=== PATIENT | male | born 1945 | race Caucasian/White ===

== ENCOUNTER 2018-09-28 14:04 | Observation (INO) | payer OTHER ==
[2018-09-28] MEDS ORDERED: ALTEPLASE 2 MG/VIAL IV SCH ×2 (18:00)
[2018-09-28] MEDS ORDERED: WATER FOR INJ,STERILE 10 ML IV SCH ×2 (18:00)
--- NOTE | 2018-09-28 19:16 | EDPHYS ---
Physician Documentation [facility] Name: Tyrese Jung Age: 73 yrs Sex: Male : 1945 Arrival Date: 09/28/2018 Time: 14:05 Bed 23 Private MD: VALENTINE KELLEY ED Physician Lukas Shah HPI: 09/28 16:29 This 73 yrs old Male presents to ER via Wheelchair with complaints of jmm DIALYSIS PORT PROBLEM. 16:29 Onset: The symptoms/episode began/occurred today. Associated signs and symptoms: The jmm patient has no apparent associated signs or symptoms. Modifying factors: The patient symptoms are alleviated by nothing, the patient symptoms are aggravated by nothing. This is a 73 year old amle with a history of DM, ESRD that presents to the ED with complaints of a clogged dialysis port. . Historical: - Allergies: 14:28 Sulfa (Sulfonamide Antibiotics); sv 14:28 Clindamycin; sv - PMHx: 14:28 Atrial Fib; ESRD; Diabetes - IDDM; Dysphagia; Acute systolic heart failure; BPH; COPD; sv Hyperlipidemia; allergic rhinitis; GERD; Hypertension; Gout; - Immunization history:: Adult Immunizations. - Social history:: Smoking status: . - Ebola Screening: : Patient denies travel to an Ebola-affected area in the 21 days before illness onset. ROS: 16:29 Constitutional: Negative for fever, chills, and weight loss, Cardiovascular: Negative jmm for chest pain, palpitations, and edema, Respiratory: Negative for shortness of breath, cough, wheezing, and pleuritic chest pain. 16:29 All other systems are negative. Exam: 16:29 Constitutional: This is a well developed, well nourished patient who is awake, alert, jmm and in no acute distress. Head/Face: atraumatic. Eyes: EOMI, no conjunctival erythema appreciated ENT: Moist Mucus Membranes Neck: Trachea midline, Supple Chest/axilla: Normal chest wall appearance and motion. Cardiovascular: Regular rate and rhythm. No edema appreciated Respiratory: Normal respirations, no respiratory distress appreciated Abdomen/GI: Non distended, soft Back: Normal ROM Skin: General appearance color normal MS/ Extremity: Moves all extremities, no obvious deformities appreciated, no edema noted to the lower extremities Neuro: Awake and alert, normal gait Psych: Behavior is normal, Mood is normal, Patient is cooperative and pleasant Vital Signs: 14:29 BP 138 / 55; Pulse 108; Resp 18; Temp 97; Pulse Ox 98% ; Weight 122.92 kg; Height 6 ft. sv 2 in. (187.96 cm); Pain 0/10; 16:15 BP 139 / 50; Pulse 109; Resp 18 S; Pulse Ox 100% on R/A; rv 16:30 BP 117 / 31; Pulse 109; Resp 18 S; Pulse Ox 100% on R/A; rv 16:45 BP 112 / 59; Pulse 109; Resp 19 S; Pulse Ox 99% on R/A; rv 17:45 BP 103 / 57; Pulse 109; Resp 17; Pulse Ox 99% on R/A; tw2 18:21 BP 130 / 51; Pulse 108; Resp 18; Pulse Ox 99% on R/A; tw2 19:44 BP 129 / 52; Pulse 112; Resp 20 S; Temp 98.9(O); Pulse Ox 98% on R/A; cc3 20:15 BP 128 / 57; Pulse 110; Resp 20 S; Pulse Ox 98% on R/A; cc3 14:29 Body Mass Index 34.79 (122.92 kg, 187.96 cm) sv MDM: 16:03 Patient medically screened. huber 19:13 Data reviewed: vital signs, nurses notes. Counseling: I had a detailed discussion with waqas the patient and/or guardian regarding: the historical points, exam findings, and any diagnostic results supporting the discharge/admit diagnosis, lab results, the need for further work-up and treatment in the hospital. ED course: I discussed the patient with Dr. Estevez whom will consult on admission. Was notified by outpatient lab hgb of 7.2 and recommends dialysis. . ED course: I discussed the patient with Dr. Kumar whom accepted admission. . 09/28 18:54 Order name: CBC with Diff; Complete Time: 20:23 [facility] 09/28 18:54 Order name: Type And Screen [facility] 09/28 18:54 Order name: CMP; Complete Time: 20:23 [facility] 09/28 19:39 Order name: CBC with Automated Diff [facility] 09/28 19:39 Order name: CBC with Automated Diff [facility] 09/28 19:39 Order name: Comprehensive Metabolic Panel [facility] 09/28 19:39 Order name: Comprehensive Metabolic Panel [facility] 09/28 19:39 Order name: Protime (+INR) [facility] 09/28 19:39 Order name: Protime (+INR) [facility] 09/28 19:39 Order name: PTT, Activated Partial Thromb [facility] 09/28 19:39 Order name: PTT, Activated Partial Thromb [facility] 09/28 20:21 Order name: ABO/RH no charge; Complete Time: 20:23 [facility] 09/28 18:54 Order name: Saline Lock; Complete Time: 19:16 [facility] 09/28 19:39 Order name: CONS Pharmacy Consult [facility] 09/28 19:39 Order name: CONS Physician Consult [facility] 09/28 19:39 Order name: Renal [facility] Administered Medications: No medications were administered Disposition: 09/28/18 19:15 Hospitalization ordered by Lukas uKmar for Observation. Preliminary diagnosis are Anemia, Other complication of vascular dialysis catheter. - Bed requested for Telemetry/MedSurg (observation). - Status is Observation. cc3 - Condition is Stable. - Problem is new. - Symptoms are unchanged. UTI on Admission? No Signatures: Dispatcher [employer] [facility] Wendy Rosenthal RN RN Rocio Padilla RN RN dw Dino Saini PA PA [facility] Tariq Lebron PA PA jr8 Ele Ramirez RN RN tw2 Ying Wolfe cc3 Corrections: (The following items were deleted from the chart) 19:47 19:15 Hospitalization Ordered by Lukas Kumar MD for Observation. Preliminary dw diagnosis is Anemia; Other complication of vascular dialysis catheter. Bed requested for Telemetry/MedSurg (observation). Status is Observation. Condition is Stable. Problem is new. Symptoms are unchanged. UTI on Admission? No. [facility] 20:35 19:47 09/28/2018 19:15 Hospitalization Ordered by Lukas Kumar MD for Observation. cc3 Preliminary diagnosis is Anemia; Other complication of vascular dialysis catheter. Bed requested for Telemetry/MedSurg (observation). Status is Observation. Condition is Stable. Problem is new. Symptoms are unchanged. UTI on Admission? No. dw
--- NOTE | 2018-09-28 19:16 | ER ---
Nurse's Notes [facility] Name: Tyrese Jung Age: 73 yrs Sex: Male : 1945 Arrival Date: 09/28/2018 Time: 14:05 Bed 23 Private MD: VALENTINE KELLEY Diagnosis: Anemia;Other complication of vascular dialysis catheter Presentation: 09/28 14:26 Presenting complaint: Patient states: "My dialysis port is plugged up.". Transition of sv care: patient was received from another setting of care (long-term care [facility]), [facility]. Onset of symptoms was September 28, 2018. Care prior to arrival: None. 14:26 Method Of Arrival: Wheelchair sv 14:26 Acuity: LANE 4 sv 16:02 Risk Assessment: Do you want to hurt yourself or someone else? Patient reports no tw2 desire to harm self or others. Initial Sepsis Screen: Does the patient meet any 2 criteria? No. Patient's initial sepsis screen is negative. Does the patient have a suspected source of infection? No. Patient's initial sepsis screen is negative. Historical: - Allergies: 14:28 Sulfa (Sulfonamide Antibiotics); sv 14:28 Clindamycin; sv - PMHx: 14:28 Atrial Fib; ESRD; Diabetes - IDDM; Dysphagia; Acute systolic heart failure; BPH; COPD; sv Hyperlipidemia; allergic rhinitis; GERD; Hypertension; Gout; - Immunization history:: Adult Immunizations. - Social history:: Smoking status: . - Ebola Screening: : Patient denies travel to an Ebola-affected area in the 21 days before illness onset. Screenin:03 Abuse screen: Denies threats or abuse. Nutritional screening: No deficits noted. tw2 Tuberculosis screening: No symptoms or risk factors identified. Fall Risk Secondary diagnosis (15 points) impaired mobility. Assessment: 16:00 General: Appears in no apparent distress. Behavior is calm, cooperative, appropriate tw2 for age. Pain: Denies pain. Neuro: Level of Consciousness is awake, alert, obeys commands. Cardiovascular: Denies chest pain, shortness of breath, Capillary refill < 3 seconds Patient's skin is warm and dry. Cardiovascular: Reports dialysis catheter is clogged. Respiratory: Airway is patent Respiratory effort is even, unlabored, Respiratory pattern is regular, symmetrical. GI: No signs and/or symptoms were reported involving the gastrointestinal system. : No signs and/or symptoms were reported regarding the genitourinary system. EENT: No signs and/or symptoms were reported regarding the EENT system. 16:25 Reassessment: James Alves RN spoke with ASHLEY Schofield our dialysis nurse and she will tw2 call Dr. Wooten to see if she can take him to our dialysis and use the cathflo prior to that, she will call us back and let us know, pt and provider updated as to plan of care. 17:00 Reassessment: ASHLEY De Leon (dialysis nurse) will come get the pt for cathflo. tw2 17:05 Reassessment: Patient appears in no apparent distress at this time. No changes from tw2 previously documented assessment. Patient and/or family updated on plan of care and expected duration. Pain level reassessed. Patient is alert, oriented x 3, equal unlabored respirations, skin warm/dry/pink. 17:22 Reassessment: per ASHLEY De Leon she will administer the cathflo but she will NOT dialize tw2 him, she said Dr. Wooten wanted him to go back to [facility], pt states he needs transportation to [facility] at this time. 17:39 Reassessment: spoke with Raine at [facility], their transportation advanced practice provider has tw2 gone home for the day, she will call [facility] to arrange transportation for the pt back to their facility, she will also call [facility] and arrange for another dialysis time for the pt, pt and pts daughter agreeable at this time. Reassessment: ASHLEY De Leonsenior c web developer Nurse is at bedside to administer the cathflo at this time. 18:20 Reassessment: Patient appears in no apparent distress at this time. No changes from tw2 previously documented assessment. Patient and/or family updated on plan of care and expected duration. Pain level reassessed. Patient is alert, oriented x 3, equal unlabored respirations, skin warm/dry/pink. ASHLEY De Leonsenior c web developer nurse is at bedside monitoring pt and cathflo results at this time. 19:18 Reassessment: spoke with Luzmaria at [facility], to cancel transportation, tw2 [facility] arrived, told them pt will be hospitalized. 19:20 Reassessment: Patient appears in no apparent distress at this time. Patient and/or cc3 family updated on plan of care and expected duration. Pain level reassessed. Patient is alert, oriented x 3, equal unlabored respirations, skin warm/dry/pink. Received this male patient from morning shift ASHLEY Marlow as a case of anemia for admission, awaiting bed availability. Medicines such as activase and heparin were all given through the hemodialysis access port on the right upper chest by HD nurse Haley as endorsed by SAHLEY Marlow. Patient with IV cannula gauge 22 at the right ACV saline locked. 20:05 Reassessment: Patient appears in no apparent distress at this time. Patient and/or cc3 family updated on plan of care and expected duration. Pain level reassessed. Patient is alert, oriented x 3, equal unlabored respirations, skin warm/dry/pink. Report called and handed over to ASHLEY Alicea for continuity care. 20:30 Reassessment: Patient left ER for admission vitally stable by wheelchair escorted by ED cc3 kym Weir and the patient's family. Vital Signs: 14:29 BP 138 / 55; Pulse 108; Resp 18; Temp 97; Pulse Ox 98% ; Weight 122.92 kg; Height 6 ft. sv 2 in. (187.96 cm); Pain 0/10; 16:15 BP 139 / 50; Pulse 109; Resp 18 S; Pulse Ox 100% on R/A; rv 16:30 BP 117 / 31; Pulse 109; Resp 18 S; Pulse Ox 100% on R/A; rv 16:45 BP 112 / 59; Pulse 109; Resp 19 S; Pulse Ox 99% on R/A; rv 17:45 BP 103 / 57; Pulse 109; Resp 17; Pulse Ox 99% on R/A; tw2 18:21 BP 130 / 51; Pulse 108; Resp 18; Pulse Ox 99% on R/A; tw2 19:44 BP 129 / 52; Pulse 112; Resp 20 S; Temp 98.9(O); Pulse Ox 98% on R/A; cc3 20:15 BP 128 / 57; Pulse 110; Resp 20 S; Pulse Ox 98% on R/A; cc3 14:29 Body Mass Index 34.79 (122.92 kg, 187.96 cm) sv ED Course: 14:05 Patient arrived in ED. sb2 14:06 VALENTINE KELLEY is Private Physician. sb2 14:26 Triage completed. sv 14:29 Arm band placed on. sv 15:58 Dino Saini PA is PHCP. [facility] 15:58 Lukas Shah MD is Attending Physician. [facility] 16:02 Ele Ramirez, RN is Primary Nurse. tw2 16:03 Call light in reach. Adult w/ patient. environmental monitoring specialist on. Pulse ox on. NIBP on. pt tw2 refusing to get in bed states "i have only had 5 days of rehab and its easier for me to stay in the chair". 19:10 Inserted saline lock: 22 gauge in right antecubital area, using aseptic technique. tw2 Blood collected. 19:14 Lukas Kumar MD is Hospitalizing Provider. [facility] 19:16 Report given to ASHLEY He. tw2 19:47 Notified Nurse Practitioner and/or Physician Rock Wool Applicator of a critical lab result(s), fc hemoglobin of 7.2. 20:05 No provider procedures requiring assistance completed. Patient admitted, IV remains in cc3 place. Administered Medications: No medications were administered Outcome: 19:15 Decision to Hospitalize by Provider. [facility] 20:05 Admitted to Med/surg accompanied by tech, family with patient, via wheelchair, room cc3 228, with chart, Report called to ASHLEY Alicea 20:05 Condition: stable 20:05 Instructed on the need for admit, Demonstrated understanding of instructions. 20:35 Patient left the ED. cc3 Signatures: Wendy Rosenthal RN RN Dino Saini PA PA [facility] Maria G Gracia RN RN Ele Ramirez RN RN tw2 Chey Ordonez sb2 Enrique Barnes RN RN Ying Wolfe cc3 Corrections: (The following items were deleted from the chart) 17:43 17:00 Reassessment: per ASHLEY Schofield (dialysis nurse) Dr. Wooten wants dialysis tw2 performed here, Kanwal will come get the pt for cathflo and dialysis tw2 17:43 17:22 Reassessment: per ASHLEY Schofield she will administer the cathflo but she will NOT tw2 dialize him, she said Dr. Wooten wanted him to go back to [facility], pt states he needs transportation to [facility] at this time. tw2 22:24 19:20 Reassessment: Patient appears in no apparent distress at this time. Patient cc3 and/or family updated on plan of care and expected duration. Pain level reassessed. Patient is alert, oriented x 3, equal unlabored respirations, skin warm/dry/pink. Received this male patient from morning shift ASHLEY Marlow as a case of anemia for admission, awaiting bed availability. Medicines such as activase and heparin were all given by HD nurse Haley as per ASHLEY Marlow. Patient with IV cannula gauge 22 at the right ACV saline locked. cc3
[2018-09-28 19:31] LABS: Absolute Lymphocytes (CBC) 0.9 K/uL (0.7-4.9); Absolute Monocytes 0.6 K/uL (0.1-1.3); Absolute Neutrophil 3.8 K/uL (1.8-8.0); Basophils % 0.3 % (0-1.3); Eosinophils % 2.4 % (0-4.4); Hematocrit 21.6 % (39.6-49.0); Lymphocytes % 16.2 % (15.3-44.8); MPV 6.6 fL (7.6-11.3); RBC Red Blood Cell Count 2.39 M/uL (4.33-5.43)
[2018-09-28] MEDS ORDERED: ACETAMINOPHEN 500 MG TAB PO PRN (19:35)
[2018-09-28] MEDS ORDERED: ONDANSETRON 4 MG/2 ML VIAL IV PRN (19:35)
[2018-09-28] MEDS ORDERED: MORPHINE 2 MG/ML SYR IV PRN (19:35)
[2018-09-28 19:47] LABS: Albumin 2.3 g/dL (3.4-5.0); Bilirubin Total 0.6 mg/dL (0.2-1.0); Potassium 4.7 mmol/L (3.5-5.1); Protein, Total 6.5 g/dL (6.4-8.2)
[2018-09-29] MEDS ORDERED: INFLUENZA VACCINE (for 3y+) 0.5 ML DOSE IMVAC ONE (06:00)
[2018-09-29 06:03] LABS: Absolute Lymphocytes (CBC) 1.1 K/uL (0.7-4.9); Absolute Monocytes 0.7 K/uL (0.1-1.3); Absolute Neutrophil 3.6 K/uL (1.8-8.0); Basophils % 0.3 % (0-1.3); Eosinophils % 2.3 % (0-4.4); Hematocrit 19.4 % (39.6-49.0); Lymphocytes % 19.3 % (15.3-44.8); MPV 6.5 fL (7.6-11.3); Monocytes % 12.9 % (3.3-12.3); RBC Red Blood Cell Count 2.15 M/uL (4.33-5.43)
[2018-09-29 06:21] LABS: Protime INR 1.11
[2018-09-29 06:24] LABS: Bilirubin Total 0.5 mg/dL (0.2-1.0); Potassium 4.8 mmol/L (3.5-5.1); Protein, Total 5.8 g/dL (6.4-8.2)
[2018-09-29] MEDS ORDERED: MORPHINE 4 MG/ML SYR IV PRN (07:43)
[2018-09-29] MEDS ORDERED: NA CHLORIDE 0.9% 1,000 ML IV PRN (08:55)
[2018-09-29] MEDS ORDERED: EPOETIN ALFA 10,000 UNIT/ML VIAL IV SCH (09:00)
[2018-09-29] MEDS ORDERED: CALCIUM CARBONATE CHEW 500MG TAB PO SCH (09:00)
[2018-09-29] MEDS ORDERED: ALBUMIN HUMAN 25% 50 ML IV SCH (09:00)
[2018-09-29] MEDS ORDERED: NA CHLORIDE 0.9% 250 ML ONE (10:03)
--- NOTE | 2018-09-29 12:35 | P.HP ---
Certification for Inpatient Patient admitted to: Observation With expected LOS: <2 Midnights Patient will require the following post-hospital care: None Practitioner: I am a practitioner with admitting privileges, knowledge of patient current condition, hospital course, and medical plan of care. Services: Services provided to patient in accordance with Admission requirements found in Title 42 Section 412.3 of the Code of Federal Regulations Patient History Date of Service: 09/28/18 Reason for admission: Patient with fluid overload unable to access History of Present Illness: Patient is a 73-year-old gentleman came to the hospital with fluid overload and anemia. Patient was at hemodialysis but his dialysis access catheter was not working. He was sent to the emergency room for further evaluation. In the ER they are able to get his catheter declotted. However because of his volume status we admitted him for further dialysis. Will monitor him overnight and then anticipate discharge home tomorrow after dialysis. Allergies clindamycin Allergy (Verified 09/28/18 22:33) Itching/Hives/Rash Sulfa (Sulfonamide Antibiotics) Allergy (Verified 09/28/18 22:33) Itching/Hives/Rash Home Medications: Acetaminophen [Tylenol] 650 mg PO Q6HP PRN 09/28/18 Allopurinol [Zyloprim*] 200 mg PO DAILY 09/28/18 Amiodarone HCl [Cordarone*] 200 mg PO DAILY 09/28/18 Amlodipine [Norvasc*] 5 mg PO DAILY 09/28/18 Aspirin Chewable [Aspirin Chewable*] 81 mg PO DAILY 09/28/18 Atorvastatin Calcium [Lipitor] 80 mg PO BEDTIME 09/28/18 Calcium Carbonate [Tums] 2 tab PO BID 09/28/18 Cholecalciferol (Vitamin D3) [Vitamin D3] 800 unit PO DAILY 09/28/18 Enema, Fleet Adult [Fleet Enema Adult*] 1 btl [place] DAILYPRN PRN 09/28/18 Finasteride [Proscar*] 5 mg PO DAILY 09/28/18 Fluticasone [Flonase 50MCG Nasal [place]*] 1 sprays MOODY BID 09/28/18 Folic Acid/Vit Bcomp,C [Renal Vitamin Tablet] 1 tab PO BID 09/28/18 Glipizide [Glucotrol] 5 mg PO DAILY 09/28/18 Hydrocortisone Cream [Hydrocortisone 1% Cream*] 1 appl TOP TID PRN 09/28/18 Lisinopril [Zestril] 30 mg PO 2100 09/28/18 Loratadine [Allergy Relief] 10 mg PO DAILY 09/28/18 Melatonin 5 mg PO BEDTIME 09/28/18 NPH, Human Insulin Isophane [Humulin N] 55 unit SQ BID 09/28/18 Nystatin Oint [Mycostatin 100 Mu/Gm Oint*] 1 appl TOP BID 09/28/18 [place]-3/Dha/Epa/Fish Oil [Fish Oil 500 mg Softgel] 1,000 mg PO BID 09/28/18 Omeprazole 20 mg PO DAILY 09/28/18 Terazosin HCl [Hytrin] 10 mg PO BEDTIME 09/28/18 - Past Medical/Surgical History Has patient received pneumonia vaccine in the past: Yes Diabetic: Yes -: Atrial Fibrilation -: ESRD -: Diabetes IDDM -: Dysphagia -: Acute Systolic Heart Failure -: BPH -: Hyperlipidemia -: Gout -: Hypertension -: Allergic Rhinitis -: GERd - Family History Mother Medical History: Heart disease Father Medical History: Heart disease - Social History Smoking Status: Former smoker Alcohol use: Yes Caffeine use: Yes Place of Residence: [facility] Review of Systems 10-point ROS is otherwise unremarkable Physical Examination - Vital Signs Temperature: 97.8 F Blood Pressure: 120/57 Pulse: 111 Respirations: 16 Pulse Ox (%): 95 - Physical Exam General: Alert, In no apparent distress, Oriented x3 HEENT: Atraumatic, PERRLA, Mucous membr. moist/pink, EOMI, Sclerae nonicteric Neck: Supple, 2+ carotid pulse no bruit, No LAD, Without JVD or thyroid abnormality Respiratory: Diminished, Crackles/rales Cardiovascular: Regular rate/rhythm, Normal S1 S2 Gastrointestinal: Normal bowel sounds, Soft and benign, Non-distended, No tenderness Musculoskeletal: No clubbing, No tenderness, Swelling Integumentary: No rashes Neurological: Normal speech, Sensation intact, Cranial nerves 3-12 intact, Normal affect Lymphatics: No axilla or inguinal lymphadenopathy - Studies Laboratory Data (last 24 hrs) 09/28/18 19:10: Sodium 136, Potassium 4.7, BUN 51 H, Creatinine 10.60 H*, Glucose 135 H, Total Bilirubin 0.6, AST 27, ALT 29, Alkaline Phosphatase 102 09/28/18 19:10: WBC 5.5, Hgb 7.2 L*, Hct 21.6 L, Plt Count 246 Assessment & Plan - Problems (Diagnosis) (1) Dialysis catheter clot or failure Status: Acute (2) Anemia Status: Chronic Qualifiers: Anemia type: due to chronic kidney disease (3) ESRD (end stage renal disease) Status: Chronic - Plan Plan: 1. Monitor electrolytes and renal function prior to hemodialysis. 2. Hemodialysis in a.m. for fluid overload 3. IV Lasix as needed through the night 4. Transfuse if hemoglobin less than 7. 5. Anticipate discharge home in a.m. after hemodialysis. Discharge Plan: Home Plan to discharge in: 24 Hours - Advance Directives Does patient have a Living Will: Yes Does patient have a Durable POA for Healthcare: Yes - Code Status/Comfort Care Code Status Assessed: Yes Code Status: Full Code Critical Care: No Time Spent Managing PTS Care (In Minutes): 50
[2018-09-29] MEDS: ALTEPLASE 2 MG/VIAL IV ONE ×2 (13:46→14:05)
[2018-09-29] MEDS: WATER FOR INJ,STERILE 10 ML IV ONE ×2 (13:46→14:06)
--- NOTE | 2018-09-29 14:10 | P.CNS ---
Date of Consult: 09/29/18 Reason for Consult: ESRd to resume HD Chief Complaint: Patient with fluid overload unable to access History of Present Illness: A 73 Y/o man with PMhx of ESRd on HD via Rt Perm cath MWF from [facility], DM , HTN and Afib pt was sent for access malfunction no chest pain, palpitation, nausea vomiting or diarrhea Allergies clindamycin Allergy (Verified 09/28/18 22:33) Itching/Hives/Rash Sulfa (Sulfonamide Antibiotics) Allergy (Verified 09/28/18 22:33) Itching/Hives/Rash Home Medications: Acetaminophen [Tylenol] 650 mg PO Q6HP PRN 09/28/18 Allopurinol [Zyloprim*] 200 mg PO DAILY 09/28/18 Amiodarone HCl [Cordarone*] 200 mg PO DAILY 09/28/18 Amlodipine [Norvasc*] 5 mg PO DAILY 09/28/18 Aspirin Chewable [Aspirin Chewable*] 81 mg PO DAILY 09/28/18 Atorvastatin Calcium [Lipitor] 80 mg PO BEDTIME 09/28/18 Calcium Carbonate [Tums] 2 tab PO BID 09/28/18 Cholecalciferol (Vitamin D3) [Vitamin D3] 800 unit PO DAILY 09/28/18 Enema, Fleet Adult [Fleet Enema Adult*] 1 btl [place] DAILYPRN PRN 09/28/18 Finasteride [Proscar*] 5 mg PO DAILY 09/28/18 Fluticasone [Flonase 50MCG Nasal [place]*] 1 sprays MOODY BID 09/28/18 Folic Acid/Vit Bcomp,C [Renal Vitamin Tablet] 1 tab PO BID 09/28/18 Glipizide [Glucotrol] 5 mg PO DAILY 09/28/18 Hydrocortisone Cream [Hydrocortisone 1% Cream*] 1 appl TOP TID PRN 09/28/18 Lisinopril [Zestril] 30 mg PO 2100 09/28/18 Loratadine [Allergy Relief] 10 mg PO DAILY 09/28/18 Melatonin 5 mg PO BEDTIME 09/28/18 NPH, Human Insulin Isophane [Humulin N] 55 unit SQ BID 09/28/18 Nystatin Oint [Mycostatin 100 Mu/Gm Oint*] 1 appl TOP BID 09/28/18 [place]-3/Dha/Epa/Fish Oil [Fish Oil 500 mg Softgel] 1,000 mg PO BID 09/28/18 Omeprazole 20 mg PO DAILY 09/28/18 Terazosin HCl [Hytrin] 10 mg PO BEDTIME 09/28/18 - Past Medical/Surgical History Diabetic: Yes -: Atrial Fibrilation -: ESRD -: Diabetes IDDM -: Dysphagia -: Acute Systolic Heart Failure -: BPH -: Hyperlipidemia -: Gout -: Hypertension -: Allergic Rhinitis -: GERd - Family History Mother Medical History: Heart disease Father Medical History: Heart disease - Social History Alcohol use: Yes Caffeine use: Yes Place of Residence: Intermediate Physical Examination Temp Pulse Resp BP Pulse Ox 97.8 F 111 H 16 120/57 L 95 09/29/18 12:45 09/29/18 12:45 09/29/18 12:45 09/29/18 12:45 09/29/18 12:45 General: In no apparent distress, Oriented x3 HEENT: Atraumatic Neck: Supple, Without JVD or thyroid abnormality Respiratory: Clear to auscultation bilaterally, Normal air movement Cardiovascular: Regular rate/rhythm, Normal S1 S2, Edema Gastrointestinal: Normal bowel sounds, Soft and benign Laboratory Data (last 24 hrs) 09/28/18 19:10: Sodium 136, Potassium 4.7, BUN 51 H, Creatinine 10.60 H*, Glucose 135 H, Total Bilirubin 0.6, AST 27, ALT 29, Alkaline Phosphatase 102 09/28/18 19:10: WBC 5.5, Hgb 7.2 L*, Hct 21.6 L, Plt Count 246 - Problems (1) ESRD (end stage renal disease) Status: Chronic (2) Anemia Status: Chronic Qualifiers: Anemia type: due to chronic kidney disease Conclusions/Impression: A 73 Y/o man with PMhx of ESRd on HD via Rt Perm cath MWF from [facility], DM , HTN and Afib pt was sent for access malfunction no chest pain, palpitation, nausea vomiting or diarrhea Access malfunction Declotted Working now Anemia S/P 2 PRBC DM as per primary HTn controlled
[2018-09-29 15:18] LABS: Hematocrit 27.3 % (39.6-49.0)
--- NOTE | 2018-09-29 16:15 | P.SSS ---
Patient History Date of Service: 09/29/18 Reason for admission: Patient with fluid overload unable to access History of Present Illness: A 73 Y/o man with PMhx of ESRd on HD via Rt Perm cath MWF from [facility], DM , HTN and Afib pt was sent for access malfunction. Patient had dialysis catheter placed 2 weeks ago at the [facility]. no chest pain, palpitation, nausea vomiting or diarrhea Allergies clindamycin Allergy (Verified 09/28/18 22:33) Itching/Hives/Rash Sulfa (Sulfonamide Antibiotics) Allergy (Verified 09/28/18 22:33) Itching/Hives/Rash Home Medications: Acetaminophen [Tylenol] 650 mg PO Q6HP PRN 09/28/18 Allopurinol [Zyloprim*] 200 mg PO DAILY 09/28/18 Amiodarone HCl [Cordarone*] 200 mg PO DAILY 09/28/18 Amlodipine [Norvasc*] 5 mg PO DAILY 09/28/18 Aspirin Chewable [Aspirin Chewable*] 81 mg PO DAILY 09/28/18 Atorvastatin Calcium [Lipitor] 80 mg PO BEDTIME 09/28/18 Calcium Carbonate [Tums] 2 tab PO BID 09/28/18 Cholecalciferol (Vitamin D3) [Vitamin D3] 800 unit PO DAILY 09/28/18 Enema, Fleet Adult [Fleet Enema Adult*] 1 btl PA DAILYPRN PRN 09/28/18 Finasteride [Proscar*] 5 mg PO DAILY 09/28/18 Fluticasone [Flonase 50MCG Nasal [place]*] 1 sprays MOODY BID 09/28/18 Folic Acid/Vit Bcomp,C [Renal Vitamin Tablet] 1 tab PO BID 09/28/18 Glipizide [Glucotrol] 5 mg PO DAILY 09/28/18 Hydrocortisone Cream [Hydrocortisone 1% Cream*] 1 appl TOP TID PRN 09/28/18 Lisinopril [Zestril] 30 mg PO 2100 09/28/18 Loratadine [Allergy Relief] 10 mg PO DAILY 09/28/18 Melatonin 5 mg PO BEDTIME 09/28/18 NPH, Human Insulin Isophane [Humulin N] 55 unit SQ BID 09/28/18 Nystatin Oint [Mycostatin 100 Mu/Gm Oint*] 1 appl TOP BID 09/28/18 [place]-3/Dha/Epa/Fish Oil [Fish Oil 500 mg Softgel] 1,000 mg PO BID 09/28/18 Omeprazole 20 mg PO DAILY 09/28/18 Terazosin HCl [Hytrin] 10 mg PO BEDTIME 09/28/18 - Past Medical/Surgical History Has patient received pneumonia vaccine in the past: Yes Diabetic: Yes -: Atrial Fibrilation -: ESRD -: Diabetes IDDM -: Dysphagia -: Acute Systolic Heart Failure -: BPH -: Hyperlipidemia -: Gout -: Hypertension -: Allergic Rhinitis -: GERd - Family History Mother -: Heart disease Father -: Heart disease - Social History Smoking Status: Former smoker Alcohol use: Yes Caffeine use: Yes Place of Residence: [place] Review of Systems 10-point ROS is otherwise unremarkable Physical Examination - Vital Signs Temperature: 97.8 F Blood Pressure: 120/57 Pulse: 111 Respirations: 16 Pulse Ox (%): 95 - Physical Exam General: Alert, In no apparent distress HEENT: Atraumatic, PERRLA, Mucous membr. moist/pink, EOMI, Sclerae nonicteric Neck: Supple, 2+ carotid pulse no bruit, No LAD, Without JVD or thyroid abnormality Respiratory: Clear to auscultation bilaterally, Normal air movement Cardiovascular: Regular rate/rhythm, Normal S1 S2 Gastrointestinal: Normal bowel sounds, No tenderness Musculoskeletal: No tenderness Integumentary: No rashes Neurological: Normal gait, Normal speech, Normal strength at 5/5 x4 extr, Normal tone, Normal affect Lymphatics: No axilla or inguinal lymphadenopathy - Studies Laboratory Data (last 24 hrs) 09/28/18 19:10: Sodium 136, Potassium 4.7, BUN 51 H, Creatinine 10.60 H*, Glucose 135 H, Total Bilirubin 0.6, AST 27, ALT 29, Alkaline Phosphatase 102 09/28/18 19:10: WBC 5.5, Hgb 7.2 L*, Hct 21.6 L, Plt Count 246 - Diagnosis (Problem(s)) (1) Dialysis catheter clot or failure Current Visit: Yes Status: Acute (2) Anemia Current Visit: Yes Status: Chronic Qualifiers: Anemia type: due to chronic kidney disease (3) ESRD (end stage renal disease) Current Visit: Yes Status: Chronic Treatment Summary: Overall during the hospital stay patient remained stable Patient initially presented to the hospital for dialysis catheter clot. Was seen by nephrology in the ER. Patient had cath flow done and HD catheter was functional again. At that time a decision was made to transfer the patient [facility] to the [facility] however of repeated hemoglobin here in the hospital consistent with anemia and this patient was admitted for blood transfusion and dialysis here in the hospital. Patient had dialysis and 2 units of blood transfusion after which his hemoglobin was 9.2 and thus patient was discharged home under stable condition. Patient's anemia is most likely secondary to chronic kidney disease and nephrology follows up with patient outpatient and received Cipro 10 shots at the dialysis center. Patient was asked to also follow up with her primary care provider in about 1-2 days along with nephrology 2 days post discharge - Disposition Disposition: TRANSFER TO [facility] Condition: GOOD Diet: Regular Activity: Ad julissa
[2018-09-29] MEDS ORDERED: TERAZOSIN HCL 5 MG CAP PO SCH (21:00)
[2018-09-29] MEDS ORDERED: ATORVASTATIN 80 MG TAB PO SCH (21:00)
[2018-09-29] MEDS ORDERED: LISINOPRIL 10 MG TAB PO SCH (21:00)
[2018-09-30] MEDS ORDERED: PANTOPRAZOLE 40MG TABLET PO SCH (06:30)
[2018-09-30] MEDS ORDERED: ALLOPURINOL 100 MG TAB PO SCH (09:00)
[2018-09-30] MEDS ORDERED: AMIODARONE HCL 200 MG TAB PO SCH (09:00)
[2018-09-30] MEDS ORDERED: ASPIRIN 81 MG CHEWABLE TABLET PO SCH (09:00)
[2018-09-30] MEDS ORDERED: AMLODIPINE 5 MG TAB PO SCH (09:00)
[2018-09-30] MEDS ORDERED: FINASTERIDE 5 MG TAB PO SCH (09:00)
[2018-10-05 05:10] LABS: HBsAG Nonreactive (Nonreactive)
== END 2018-09-29 16:52 ==
LOC: ER 14:04 → ERHOLD 19:35 → 2ND 20:08
PROVIDERS: ADMIT Hospitalist; ATTEND Hospitalist
DX: T82.898A Other specified complication of vascular prosthetic devices, implants and grafts, initial encounter (principal); I13.2 Hypertensive heart and chronic kidney disease with heart failure and with stage 5 chronic kidney disease, or end stage renal disease; E11.22 Type 2 diabetes mellitus with diabetic chronic kidney disease; N18.6 End stage renal disease; I50.22 Chronic systolic (congestive) heart failure; Z99.2 Dependence on renal dialysis; D64.9 Anemia, unspecified; I48.91 Unspecified atrial fibrillation; Z88.2 Allergy status to sulfonamides; Z23 Encounter for immunization
CPT/HCPCS: 36415; 36430; 80053 ×2; 85014; 85018; 85025 ×2; 85610; 85730; 86317; 86704; 86706; 86850; 86900; 86901; 87340; 99285; G0008; G0257; J1644; J2997 ×3; P9016 ×2; Q2035; Q4081